=== PATIENT | male | born 1985 | race Hispanic/Latino ===

== ENCOUNTER 2017-06-18 21:03 | Emergency (ER) | payer OTHER ==
[2017-06-18] MEDS ORDERED: Albuterol 0.083% Inhal Sol (2.5 mg/3 mL) UD INH STA (21:14)
[2017-06-18] MEDS ORDERED: Albuterol-Ipratrop 3 mg / 0.5 (3 ml) UD INH STA ×2 (21:14→21:32)
[2017-06-18] MEDS ORDERED: Albuterol 0.083% Inhal Sol (2.5 mg/3 mL) UD ONE (21:21)
[2017-06-18] MEDS ORDERED: Albuterol-Ipratrop 3 mg / 0.5 (3 ml) UD ONE (21:22)
[2017-06-18] MEDS ORDERED: DiphenhydrAMINE 50 mg/ml Inj IVP STA (21:28)
[2017-06-18] MEDS ORDERED: EPINEPHrine 1 mg/ml (1:1000) Inj IM STA (21:29)
[2017-06-18] MEDS ORDERED: DiphenhydrAMINE 50 mg/ml Inj ONE (21:29)
[2017-06-18] MEDS ORDERED: Sodium Chloride 0.9% 1,000 ML IV SCH (21:30)
[2017-06-18 21:45] LABS: BASO % 0.2 % (0.0-2.0); EOS # 0.1 K/uL (0.0-0.7); EOS % 0.8 % (0.0-4.0); HEMOGLOBIN 16.7 g/dL (12.0-18.0); LYMPH # 4.9 K/uL (1.0-4.3); LYMPH % 37.1 % (20.0-40.0); MEAN CELL VOLUME 89.1 fl (80.0-94.0); MEAN CORPUSCULAR HEMOGLOBIN 30.1 pg (27.0-31.0); MEAN CORPUSCULAR HGB CONC 33.8 g/dL (33.0-37.0); MEAN PLATELET VOLUME 8.1 fl (7.2-11.7); MONO # 0.8 K/uL (0.0-0.8); MONO % 6.3 % (0.0-10.0); NEUT # 7.3 K/uL (1.8-7.0); NEUT % 55.6 % (50.0-75.0); NRBC % 0.2 % (0.0-0.0); RBC 5.54 Mil/uL (4.40-5.90); RED CELL DISTRIBUTION WIDTH 13.7 % (11.5-14.5); WHITE BLOOD COUNT 13.1 K/uL (4.8-10.8)
[2017-06-18 21:58] LABS: BLOOD UREA NITROGEN 20 mg/dl (9-20); CALCIUM 9.3 mg/dL (8.4-10.2); GFR AFRICAN-AMERICAN > 60; GFR NON-AFRICAN AMERICAN > 60
--- NOTE | 2017-06-18 23:17 | ED PDOC ---
HPI: Allergic Reaction Chief Complaint (Provider): Allergic Reaction History Per: Patient History/Exam Limitations: no limitations Onset/Duration Of Symptoms: Hrs (19:30 today) Current Symptoms Are (Timing): Still Present Context: Food Possible Cause: Food Associated Symptoms: Dyspnea, Itching (diffuse), Redness Home/EMS Treatment: Benadryl (50mg PO) Additional Complaint(s): 32 year old male presents to ED with allergic reaction after eating [place] food at 19:30 today. Patient reports of having a known nut allergy and after eating [place] food, he developed mild shortness of breath, diffuse itching, chest tightness, facial and body flushing. He also developed swelling to eye orbits and palpations and took 50mg Benadryl around 19:45. He reports similar reactions to nuts and penicillin in the past. Indicates some nausea but denies recent fever, travel, vomiting, history of anaphylaxis, abdominal pain, or chest pain. PMD: Dr. Severino <Glenna Cowart - Last Filed: 06/20/17 06:24> <Kassandra Jennings - Last Filed: 06/21/17 14:04> Time Seen by Provider: 06/18/17 21:11 Chief Complaint (Nursing): Allergic Reaction Supervising Attending Note - Supervising Attending Note The Documented history was done by the: Physician Product Analyst The documented physical exam was done by the: Physician Product Analyst, Attending Physician - Attestation: I have personally seen and examined this patient.: Yes I have fully participated in the care of the patient.: Yes I have reviewed all pertinent clinical information: Yes - Notes: Notes:: Allergic reaction with wheezing and vomiting. No uvula edema. Normotensive. Improved with ER treatment. <Kassandra Jennings - Last Filed: 06/21/17 14:04> Past Medical History Reviewed: Historical Data, Nursing Documentation, Vital Signs Vital Signs: Last Vital Signs Temp 98 F 06/18/17 21:07 Pulse 140 H 06/18/17 21:07 Resp 22 06/18/17 21:07 BP 140/89 06/18/17 21:07 Pulse Ox 91 L 06/18/17 21:07 - Medical History PMH: No Chronic Diseases - Surgical History Surgical History: No Surg Hx - Family History Family History: States: Unknown Family Hx - Social History Current smoker - smoking cessation education provided: No Alcohol: Social Drugs: Denies <Inés Cowartbeberonica Mota - Last Filed: 06/20/17 06:24> Vital Signs: Last Vital Signs Temp 98.8 F 06/18/17 23:49 Pulse 93 H 06/18/17 23:49 Resp 17 06/18/17 23:49 BP 117/78 06/18/17 23:49 Pulse Ox 91 L 06/20/17 06:24 <Kassandra Jennings - Last Filed: 06/21/17 14:04> - Home Medications Home Medications: Ambulatory Orders Medication Instructions Recorded Albuterol Sulfate [Ventolin Hfa] 1 puff IH Q2 #1 each 06/18/17 DiphenhydrAMINE [Benadryl] 50 mg PO Q6 PRN #30 cap 06/18/17 Famotidine [Pepcid] 40 mg PO DAILY #5 tablet 06/18/17 Prednisone [Deltasone] 40 mg PO DAILY #10 tablet 06/18/17 - Allergies Allergies/Adverse Reactions: Allergies Allergy/AdvReac Type Severity Reaction Status Date / Time nuts Allergy SHORTNESS Uncoded 06/18/17 21:10 OF BREATH Review of Systems ROS Statement: Except As Marked, All Systems Reviewed And Found Negative Constitutional: Negative for: Fever Eyes: Positive for: Other (Swelling to eye orbits and palpations) Cardiovascular: Negative for: Chest Pain Respiratory: Positive for: Shortness of Breath (mild SOB) Gastrointestinal: Positive for: Nausea. Negative for: Vomiting Skin: Positive for: Other (Diffuse itching) <Willow Cowartzabeth Nakul - Last Filed: 06/20/17 06:24> Physical Exam - Reviewed Nursing Documentation Reviewed: Yes Vital Signs Reviewed: Yes - Physical Exam Comments: GENERAL APPEARANCE: Patient is mild respiratory distress with labored breathing , but speaks in full sentences. Alert and oriented x3. SKIN: diffuse flushing to face and erythematous macules to entire body. Otherwise (-) excoriations, (-) drainage, (-) crusting of lesions is present. HENT: slight edema to lower lip and bilateral eye orbits (-) orbital tenderness (-) conjunctival injection, (-) chemosis. EOMI and painless. Oropharynx: clear, uvula midline (-) tongue swelling, (-) tonsillar exudates, (-) pharyngeal erythema. Airway: Patent (-) stridor, (-) hoarseness. Mucous membranes moist. Nares: Patent (-) rhinorrhea. NECK:Supple, FROM CARDIOVASCULAR: (+) tachycardia (-) murmur, (-) gallop. CHEST: (+) decreased breath sounds bilaterally. (-) rales, (-) wheezing, (+) dyspnea (+) tachypnic. ABDOMEN: Soft. (-) tenderness, (-) distention (-) guarding NEURO: Mental status: Patient is alert, oriented, and with normal strength and tone. <Glenna Cowart - Last Filed: 06/20/17 06:24> - Laboratory Results Result Diagrams: 06/18/17 21:30 06/18/17 21:30 - ECG O2 Sat by Pulse Oximetry: 91 (RA) Pulse Ox Interpretation: Abnormal <Glenna Cowart - Last Filed: 06/20/17 06:24> - Laboratory Results Result Diagrams: 06/18/17 21:30 06/18/17 21:30 - Critical Care Total Time (In Min): 30 Documented Critical Care: Time excludes all time spent performint seperately billable procedures <Kassandra Jennings - Last Filed: 06/21/17 14:04> Disposition - Patient ED Disposition Is Patient to be Admitted: No Counseled Patient/Family Regarding: Studies Performed, Diagnosis, Need For Followup, Rx Given - Disposition Disposition: Routine/Home Disposition Time: 23:16 - POA Present On Arrival: None <Glenna Cowart - Last Filed: 06/20/17 06:24> <Kassandra Jennings - Last Filed: 06/21/17 14:04> - Clinical Impression Clinical Impression: Allergic reaction, Shortness of breath, Hives, Nausea and vomiting, Angioedema - Disposition Condition: STABLE Additional Instructions: FOLLOW UP WITH PMD IN 1-2 DAYS WITHOUT FAIL. RETURN TO ED WITH ANY NEW OR WORSENING SYMPTOMS. Prescriptions: Albuterol Sulfate [Ventolin Hfa] 1 puff IH Q2 #1 each DiphenhydrAMINE [Benadryl] 50 mg PO Q6 PRN #30 cap PRN Reason: Itching / Pruritus Famotidine [Pepcid] 40 mg PO DAILY #5 tablet Prednisone [Deltasone] 40 mg PO DAILY #10 tablet Instructions: Hives, Food Allergy, Angioedema, Shortness of Breath (Dyspnea) ( DC), Nausea and Vomiting, Adult Forms: isango! (Wolof) Print Language: SLOVENIAN Medical Decision Making Medical Decision Making: Initial Impression: Allergic reaction to food, respiratory distress Initial Plan: IV access Assistant Center Director Labs Albuterol 2.5mg INH x1 Albuterol/Ipratrpium 3mL INH x2 Benadryl 50mg IV Pepcid 40mg IV Solu Medrol 125mg IV Sodium chloride 1000mL IV Zofran 4mg IV (Patient had 2 NB, NB vomiting episodes during initial examination ) 2300 Labs reviewed and grossly unremarkable. 2309 Patient requesting to go home at this time. On re-evaluation, patient reports complete resolution of symptoms, denies any SOB, dyspnea, itching, abdominal/chest pain. Angioedema significantly improved. On exam, patient remains AAOx3, in no acute distress. Lungs clear to auscultation with improved breath sounds, cardiac RRR, abdomen soft, non-tender , repeat neuro exam shows no focal findings. VSS, Stable for discharge. Repeat HR: 93 Repeat BP: 117/78 Repeat O2: 98% on RA Lab/Diagnostic results d/w the patient in great detail. Diagnosis of allergic reaction to nuts, SOB-resolved d/w the patient. Based on history, exam and diagnostic results, plan will be for outpatient follow up. Patient instructed to follow-up with pmd / referral provided / the clinic in 1- 2 days without fail. Advised to take medication as prescribed. Return to the emergency room at any time for any new or worsening symptoms. Patient states he fully agrees with and understands discharge instructions. States that he agrees with the plan and disposition. Verbalized and repeated discharge instructions and plan. I have given the patient opportunity to ask any additional questions. Scribe Attestation: Documented by Corey Hemphill acting as a scribe for Glenna Cowart. Provider Scribe Attestation: All medical record entries made by the Scribe were at my direction and personally dictated by me. I have reviewed the chart and agree that the record accurately reflects my personal performance of the history, physical exam, medical decision making, and the department course for this patient. I have also personally directed, reviewed, and agree with the discharge instructions and disposition. <Glenna Cowart - Last Filed: 06/20/17 06:24> Results - Lab Results Lab Results: 06/18/17 06/18/17 21:30 21:30 WBC 13.1 H RBC 5.54 Hgb 16.7 Hct 49.4 MCV 89.1 MCH 30.1 MCHC 33.8 RDW 13.7 Plt Count 273 MPV 8.1 Neut % (Auto) 55.6 Lymph % (Auto) 37.1 [place] % (Auto) 6.3 Eos % (Auto) 0.8 Baso % (Auto) 0.2 Neut # (Auto) 7.3 H Lymph # (Auto) 4.9 H [place] # (Auto) 0.8 Eos # (Auto) 0.1 Baso # (Auto) 0.0 Sodium 139 Potassium 3.6 Chloride 100 Carbon Dioxide 23 Anion Gap 20 BUN 20 Creatinine 0.9 Est GFR ( Amer) > 60 Est GFR (Non-Af Amer) > 60 Random Glucose 126 H Calcium 9.3 <Glenna Cowart - Last Filed: 06/20/17 06:24> - Lab Results Lab Results: 06/18/17 06/18/17 21:30 21:30 WBC 13.1 H RBC 5.54 Hgb 16.7 Hct 49.4 MCV 89.1 MCH 30.1 MCHC 33.8 RDW 13.7 Plt Count 273 MPV 8.1 Neut % (Auto) 55.6 Lymph % (Auto) 37.1 [place] % (Auto) 6.3 Eos % (Auto) 0.8 Baso % (Auto) 0.2 Neut # (Auto) 7.3 H Lymph # (Auto) 4.9 H [place] # (Auto) 0.8 Eos # (Auto) 0.1 Baso # (Auto) 0.0 Sodium 139 Potassium 3.6 Chloride 100 Carbon Dioxide 23 Anion Gap 20 BUN 20 Creatinine 0.9 Est GFR ( Amer) > 60 Est GFR (Non-Af Amer) > 60 Random Glucose 126 H Calcium 9.3 <Kassandra Jennings - Last Filed: 06/21/17 14:04>
[2017-06-18 23:50] VITALS: BP 117/78; PULSE 93; RESP 17; TEMP 98.8
[2017-06-20 06:09] VITALS: O2SAT 91
== END 2017-06-18 23:51 | disposition home or self-care (01) ==
LOC: H.ER 21:03
DX: T78.1XXA Other adverse food reactions, not elsewhere classified, initial encounter (principal); T78.3XXA Angioneurotic edema, initial encounter
CPT/HCPCS: 80048; 85025; 94640; 96374; 96375; 99284; J1200; J2405; J2930; J7040